=== PATIENT | male | born 1980 | race Caucasian/White ===

== ENCOUNTER 2019-07-16 17:19 | Emergency (ER) | payer SELFPAY ==
--- NOTE | 2019-07-16 17:51 | ERPHSYRPT ---
- History of Present Illness Time Seen by Provider: 07/16/19 17:51 Source: patient, family Physician History: 39 y/o white male with h/o anxiety. pt under a lot of stress with a move and problems with children. pt began feeling hot and was off balance last pm. fell and hit his head last pm as his caught him. this morning, after sleeping, pt began feeling better. however, at work symptoms recurred. he also states he has chest tightness and pressure on left. no radiation. Witnessed: by family Prior Episodes: no prior history Timing/Duration: yesterday Precipitating Factors: diaphoresis Context: emotional stress Loss of Consciousness: no loss of consciousness Charcter of event(s): almost passed out Allergies/Adverse Reactions: No Known Drug Allergies Allergy (Verified 07/16/19 18:08) Home Medications: No Reportable Medications [No Reported Medications] 07/16/19 [History] Hx Tetanus, Diphtheria Vaccination/Date Given: Yes Hx Influenza Vaccination/Date Given: No Hx Pneumococcal Vaccination/Date Given: No - Past Medical History Pertinent Past Medical History: Yes Neurological History: No Pertinent History ENT History: No Pertinent History Cardiac History: Arrhythmia Respiratory History: No Pertinent History Endocrine Medical History: Diabetes Type II Musculoskeletal History: Fractures GI Medical History: Gallbladder Disease, Pancreatitis, Ulcer History: Other (PROSTATISM) Psycho-Social History: Depression Male Reproductive Disorders: Prostate Problems Other Medical History: FREQUENT KIDNEY STONES - Past Surgical History Past Surgical History: Yes Neuro Surgical History: No Pertinent History Cardiac: No Pertinent History Respiratory: No Pertinent History Gastrointestinal: Cholecystectomy, Other Genitourinary: No Pertinent History Musculoskeletal: No Pertinent History Male Surgical History: No Pertinent History Other Surgical History: gastric bypass-rue and y, dilation of stomach - Social History Smoking Status: Never smoker Exposure to second hand smoke: No Drug Use: none Patient Lives Alone: No - Review of Systems Constitutional: Weakness Eyes: Vision Changes (was briefly blurry last pm) Ears, Nose, & Throat: No Symptoms Respiratory: No Symptoms Cardiac: Chest Pain (left described as pressure and tightness) Abdominal/Gastrointestinal: No Symptoms Genitourinary Symptoms: No Symptoms Musculoskeletal: No Symptoms Skin: No Symptoms Neurological: Dizziness, Other (loss of balance) Psychological: No Symptoms Endocrine: No Symptoms Hematologic/Lymphatic: No Symptoms Immunological/Allergic: No Symptoms Physical Exam - Nursing Vital Signs Nursing Vital Signs: Initial Vital Signs Temperature 98.1 F 07/16/19 17:23 Pulse Rate 76 07/16/19 17:23 Respiratory Rate 16 07/16/19 17:23 Blood Pressure 166/97 07/16/19 17:23 O2 Sat by Pulse Oximetry 99 07/16/19 17:23 Pain Scale Pain Intensity 5 - [place] Coma Scale Best Eye Response ([place]): (4) open spontaneously Best Verbal Response ([place]): (5) oriented Best Motor Response ([place]): (6) obeys commands Toby Total: 15 - Physical Exam General Appearance: no apparent distress, alert, anxiety Eye Exam: bilateral eye: normal inspection, PERRL, EOMI Ears, Nose, Throat Exam: normal ENT inspection, moist mucous membranes Neck Exam: normal inspection, non-tender, supple, full range of motion Respiratory: normal breath sounds, lungs clear, airway intact, No chest tenderness, No respiratory distress Cardiovascular: regular rate/rhythm, normal heart sounds, normal peripheral pulses Gastrointestinal: soft, normal bowel sounds, No tenderness Rectal Exam: not done Back Exam: normal inspection, normal range of motion, No CVA tenderness Extremity Exam: normal inspection, normal range of motion, pelvis stable Mental Status: alert, oriented x 3, cooperative manager behavior Exam: normal hearing, normal speech, PERRL, tongue midline Coordination/Gait: normal finger to nose, normal gait, normal cerebellar function Motor/Sensory: no motor deficit, no sensory deficit, no pronator drift Skin Exam: normal color, warm, dry SpO2 Interpretation: normal O2 Delivery: Room Air Ordered Tests: Active Orders 24 hr Category Date Time Status Clean Catch Urine Specimen STAT Care 07/16/19 18:17 Active EKG-ER Only STAT Care 07/16/19 18:17 Active IV Insertion STAT Care 07/16/19 18:17 Active Pulse Oximetry (ED) STAT Care 07/16/19 18:17 Active HEAD WITHOUT CONTRAST [CT] Stat Exams 07/16/19 18:18 Ordered CBC W DIFF Stat Lab 07/16/19 18:17 Ordered CMP Stat Lab 07/16/19 18:17 Ordered D-DIMER QUANTITATION Stat Lab 07/16/19 18:17 Ordered UA W/RFX UR CULTURE Stat Lab 07/16/19 18:17 Uncollected Urine Triage Profile Stat Lab 07/16/19 18:17 Uncollected Medication Summary Generic Name Dose Route Start Last Admin Trade Name Ember PRN Reason Stop Dose Admin Sodium Chloride 1,000 mls @ 999 mls/hr 07/16/19 18:17 Sodium Chloride 0.9% 1000 Ml IV 07/16/19 19:17 .Q1H1M STA - Progress Progress: unchanged Progress Note: 07/16/19 18:29 pt is leaving [facility]. pt does not want a workup. pt was evaluated by me. orders entered. pt states he has health insurance issues and does not want anything done and does not want to wait for results. pt is aware his condition may worsen and he could . he wants to leave and will sign an [facility] form - Departure Departure Disposition: AMA Clinical Impression: Syncopal episodes Condition: Stable Critical Care Time: No Referrals: AGNES FISH FNP [Family Provider] - Additional Instructions: return to ED for continue evaluation and worsening symptoms
[2019-07-16 18:17] VITALS: PULSE 69
[2019-07-16] MEDS ORDERED: Sodium Chloride 0.9% 1000 ML 1,000 ML IV STA (18:17)
[2019-07-16 18:24] VITALS: O2SAT 99
[2019-07-16 18:33] VITALS: BP 134/86
== END 2019-07-16 18:31 | disposition left against medical advice (07) ==
LOC: ED 17:19
DX: R55 Syncope and collapse (principal); E11.9 Type 2 diabetes mellitus without complications
CPT/HCPCS: 36000; 94760; 99284

== ENCOUNTER 2021-02-23 17:19 | Emergency (ER) | payer OTHER ==
--- NOTE | 2021-02-23 17:21 | ERPHSYRPT ---
- History of Present Illness Time Seen by Provider: 02/23/21 17:21 Historian: patient Exam Limitations: no limitations Physician History: This is a 40-year-old male who approximately 1 week ago noticed some intermittent left anterior chest pain in a bandlike fashion going across into his left shoulder. Today it became more constant and he became diaphoretic dizzy. He describes the pain as dull and aching. He has no cardiac history. He is on no medications chronically and he has no known drug allergies. He has had no fever or chills. He has had no cough. He has no abdominal pain. He said no nausea vomiting or diarrhea. Patient does have a history of anxiety disorders. He had a similar episode back in June 2019. That work-up was negative at that time. He has no primary care physician. Timing/Duration: day(s) (5 to 7 days) Activities at Onset: none Quality: aching Location: other (Left anterior chest wall) Chest Pain Radiation: arm (Left shoulder.) Severity of Pain-Max: moderate Severity of Pain-Current: moderate Modifying Factors: Improves With: nothing Associated Symptoms: diaphoresis, dizziness Prior Chest Pain/Cardiac Workup: no prior cardiac workup Nitro Today/Relief: no nitro taken today Aspirin Treatment Today: 81 mg x 4, provided by ED Allergies/Adverse Reactions: No Known Drug Allergies Allergy (Verified 02/23/21 17:28) Home Medications: No Reportable Medications [No Reported Medications] 07/16/19 [History] Hx Tetanus, Diphtheria Vaccination/Date Given: Yes Hx Influenza Vaccination/Date Given: No Hx Pneumococcal Vaccination/Date Given: No Travel Risk - International Travel Have you traveled outside of the country in past 3 weeks: No - Coronavirus Screening Are you exhibiting any of the following symptoms?: No Close contact with a COVID-19 positive Pt in past 14-21 Days: No - Review of Systems Constitutional: No Symptoms Eyes: No Symptoms Ears, Nose, & Throat: No Symptoms Respiratory: No Symptoms Cardiac: Chest Pain Abdominal/Gastrointestinal: No Symptoms Genitourinary Symptoms: No Symptoms Musculoskeletal: No Symptoms Skin: No Symptoms Neurological: No Symptoms Psychological: Anxiety Endocrine: No Symptoms Hematologic/Lymphatic: No Symptoms Immunological/Allergic: No Symptoms All Other Systems: Reviewed and Negative - Past Medical History Pertinent Past Medical History: Yes Neurological History: No Pertinent History ENT History: No Pertinent History Cardiac History: Arrhythmia Respiratory History: No Pertinent History Endocrine Medical History: Diabetes Type II Musculoskeletal History: Fractures GI Medical History: Gallbladder Disease, Pancreatitis, Ulcer History: Other (PROSTATISM) Psycho-Social History: Depression Male Reproductive Disorders: Prostate Problems Other Medical History: FREQUENT KIDNEY STONES - Past Surgical History Past Surgical History: Yes Neuro Surgical History: No Pertinent History Cardiac: No Pertinent History Respiratory: No Pertinent History Gastrointestinal: Cholecystectomy, Other Genitourinary: No Pertinent History Musculoskeletal: No Pertinent History Male Surgical History: No Pertinent History Other Surgical History: gastric bypass-rue and y, dilation of stomach - Social History Smoking Status: Never smoker Exposure to second hand smoke: No Drug Use: none Patient Lives Alone: No - Nursing Vital Signs Nursing Vital Signs: Initial Vital Signs Temperature 99.6 F 02/23/21 17:20 Pulse Rate 84 02/23/21 17:20 Respiratory Rate 18 02/23/21 17:20 Blood Pressure 164/103 02/23/21 17:20 O2 Sat by Pulse Oximetry 98 02/23/21 17:20 Pain Scale Pain Intensity 3 - Physical Exam General Appearance: no apparent distress, alert, anxiety Eye Exam: PERRL/EOMI, eyes nml inspection Ears, Nose, Throat Exam: normal ENT inspection, moist mucous membranes Neck Exam: normal inspection, non-tender, supple, full range of motion Respiratory Exam: normal breath sounds, lungs clear, airway intact, No chest tenderness, No respiratory distress Cardiovascular Exam: regular rate/rhythm, normal heart sounds, normal peripheral pulses Gastrointestinal/Abdomen Exam: soft, normal bowel sounds, No tenderness Rectal Exam: not done Back Exam: normal inspection, normal range of motion, No CVA tenderness, No vertebral tenderness Extremity Exam: normal inspection, normal range of motion, pelvis stable Neurologic Exam: alert, oriented x 3, cooperative, 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 The the only change on today's EKG when compared to 05/16/2013 is that today's EKG shows left axis deviation. This is a new finding.) Ordered Tests: Active Orders 24 hr Category Date Time Status Business System Manager STAT Care 02/23/21 18:51 Active EKG-ER Only STAT Care 02/23/21 17:35 Active IV Insertion STAT Care 02/23/21 17:35 Active Pulse Oximetry (ED) STAT Care 02/23/21 17:35 Active CHEST 1 VIEW (PORTABLE) Stat Exams 02/23/21 17:36 Taken CBC W DIFF Stat Lab 02/23/21 17:48 Completed CMP Stat Lab 02/23/21 17:48 Completed D-DIMER QUANTITATIVE Stat Lab 02/23/21 17:55 Completed NT PRO BNP Stat Lab 02/23/21 17:48 Completed PROTIME WITH INR Stat Lab 02/23/21 17:55 Completed TROPONIN Q3H Lab 02/23/21 17:45 Completed TROPONIN Q3H Lab 02/23/21 17:48 Received TROPONIN Q3H Lab 02/23/21 20:45 Ordered TROPONIN Q3H Lab 02/24/21 02:45 Ordered TROPONIN Q3H Lab 02/24/21 05:45 Ordered Medication Summary Discontinued Medications Generic Name Dose Route Start Last Admin Trade Name Freq PRN Reason Stop Dose Admin Aspirin 324 mg 02/23/21 17:35 02/23/21 17:47 Baby Aspirin 81 Mg Chew PO 02/23/21 17:36 324 mg STAT ONE Administration Aspirin Confirm 02/23/21 17:42 Baby Aspirin 81 Mg Chew Administered 02/23/21 17:43 Dose 324 mg .ROUTE .STK-MED ONE Morphine Sulfate 4 mg 02/23/21 17:35 02/23/21 17:47 Morphine Sulfate 4 Mg Inj IV 02/23/21 17:36 4 mg STAT ONE Administration Morphine Sulfate Confirm 02/23/21 17:43 Morphine Sulfate 4 Mg Inj Administered 02/23/21 17:44 Dose 4 mg .ROUTE .STK-MED ONE Ondansetron HCl 4 mg 02/23/21 17:35 02/23/21 17:46 Zofran 4 Mg/2 Ml Vial IV 02/23/21 17:36 4 mg STAT ONE Administration Ondansetron HCl Confirm 02/23/21 17:42 Zofran 4 Mg/2 Ml Vial Administered 02/23/21 17:43 Dose 4 mg .ROUTE .STK-MED ONE Lab/Rad Data: Laboratory Result Diagrams 02/23/21 17:48 02/23/21 17:48 Laboratory Results 02/23/21 02/23/21 02/23/21 Range/Units 17:55 17:48 17:48 WBC 4.1 (4.0-10.5) K/mm3 RBC 4.68 (4.1-5.6) M/mm3 Hgb 10.7 L (12.5-18.0) gm/dl Hct 35.4 L (42-50) % MCV 75.6 L (78-100) fl MCH 22.9 L (26-32) pg MCHC 30.2 L (32-36) g/dl RDW 16.8 H (11.5-14.0) % Plt Count 300 (150-450) K/mm3 MPV 8.8 (7.5-11.0) fl Gran % 70.6 H (36.0-66.0) % Eos # (Auto) 0.01 (0-0.5) Absolute Lymphs (auto) 0.64 L (1.0-4.6) Absolute Monos (auto) 0.54 (0.0-1.3) Lymphocytes % 15.5 L (24.0-44.0) % Monocytes % 13.0 H (0.0-12.0) % Eosinophils % 0.2 (0.00-5.0) % Basophils % 0.7 (0.0-0.4) % Absolute Granulocytes 2.92 (1.4-6.9) Basophils # 0.03 (0-0.4) PT 12.2 (9.4-12.5) SECONDS INR 1.03 (0.8-3.0) D-Dimer 248 (215-500) ng/mL Sodium 138 (137-145) mmol/L Potassium 4.3 (3.5-5.1) mmol/L Chloride 97 L (98-107) mmol/L Carbon Dioxide 24 (22-30) mmol/L Anion Gap 21.2 H (5-15) MEQ/L BUN 5 L (9-20) mg/dL Creatinine 0.75 (0.66-1.25) mg/dL Estimated GFR > 60.0 ML/MIN Glucose 117 H (74-106) mg/dL Calcium 9.2 (8.4-10.2) mg/dL Total Bilirubin 0.70 (0.2-1.3) mg/dL AST 50 (17-59) U/L ALT 17 (0-50) U/L Alkaline Phosphatase 70 (38-126) U/L Troponin I (0.000-0.034) ng/mL NT-Pro-B Natriuret Pep 47.5 (0-450) pg/mL Serum Total Protein 7.7 (6.3-8.2) g/dL Albumin 4.7 (3.5-5.0) g/dL 02/23/21 Range/Units 17:45 WBC (4.0-10.5) K/mm3 RBC (4.1-5.6) M/mm3 Hgb (12.5-18.0) gm/dl Hct (42-50) % MCV (78-100) fl MCH (26-32) pg MCHC (32-36) g/dl RDW (11.5-14.0) % Plt Count (150-450) K/mm3 MPV (7.5-11.0) fl Gran % (36.0-66.0) % Eos # (Auto) (0-0.5) Absolute Lymphs (auto) (1.0-4.6) Absolute Monos (auto) (0.0-1.3) Lymphocytes % (24.0-44.0) % Monocytes % (0.0-12.0) % Eosinophils % (0.00-5.0) % Basophils % (0.0-0.4) % Absolute Granulocytes (1.4-6.9) Basophils # (0-0.4) PT (9.4-12.5) SECONDS INR (0.8-3.0) D-Dimer (215-500) ng/mL Sodium (137-145) mmol/L Potassium (3.5-5.1) mmol/L Chloride (98-107) mmol/L Carbon Dioxide (22-30) mmol/L Anion Gap (5-15) MEQ/L BUN (9-20) mg/dL Creatinine (0.66-1.25) mg/dL Estimated GFR ML/MIN Glucose (74-106) mg/dL Calcium (8.4-10.2) mg/dL Total Bilirubin (0.2-1.3) mg/dL AST (17-59) U/L ALT (0-50) U/L Alkaline Phosphatase (38-126) U/L Troponin I < 0.012 (0.000-0.034) ng/mL NT-Pro-B Natriuret Pep (0-450) pg/mL Serum Total Protein (6.3-8.2) g/dL Albumin (3.5-5.0) g/dL - Progress Progress: improved, re-examined Air Movement: good Progress Note: 02/23/21 19:29 Chest x-ray shows no acute cardiopulmonary process. Blood Culture(s) Obtained: No Antibiotics given: No Counseled pt/family regarding: lab results, diagnosis, need for follow-up, rad results - Departure Departure Disposition: Home Clinical Impression: Chest pain, non-cardiac Condition: Stable Critical Care Time: No Additional Instructions: Follow-up with a primary provider. See list provided to you. Return to the e mergency department if your symptoms recur.
[2021-02-23] MEDS ORDERED: BABY ASPIRIN 81 MG CHEW PO ONE (17:35)
[2021-02-23] MEDS ORDERED: MORPHINE SULFATE 4 MG INJ IV ONE (17:35)
[2021-02-23] MEDS ORDERED: Zofran 4 MG/2 ML VIAL IV ONE (17:35)
[2021-02-23] MEDS ORDERED: BABY ASPIRIN 81 MG CHEW ONE (17:42)
[2021-02-23] MEDS ORDERED: Zofran 4 MG/2 ML VIAL ONE (17:42)
[2021-02-23] MEDS ORDERED: MORPHINE SULFATE 4 MG INJ ONE (17:43)
[2021-02-23 17:52] LABS: Absolute Neutrophil Ct (ANC) 2.92 (1.4-6.9); BASOPHIL % 0.7 % (0.0-0.4); Basophil (Absolute #) 0.03 (0-0.4); Eosinophil % 0.2 % (0.00-5.0); Eosinophil (Absolute #) 0.01 (0-0.5); Hematocrit 35.4 % (42-50); Hemoglobin 10.7 gm/dl (12.5-18.0); Lymphocyte (Absolute #) 0.64 (1.0-4.6); Lymphocytes % 15.5 % (24.0-44.0); Mean Cell Volume 75.6 fl (78-100); Mean Corpuscular Hemoglobin 22.9 pg (26-32); Mean Corpuscular Hgb Concent. 30.2 g/dl (32-36); Mean Platelet Volume 8.8 fl (7.5-11.0); Monocyte (Absolute #) 0.54 (0.0-1.3); Neutrophil % 70.6 % (36.0-66.0); Platelet Count 300 K/mm3 (150-450); Red Blood Count 4.68 M/mm3 (4.1-5.6); Red Cell Distribution Width 16.8 % (11.5-14.0); White Blood Count 4.1 K/mm3 (4.0-10.5)
[2021-02-23 18:12] LABS: ALBUMIN 4.7 g/dL (3.5-5.0); ALKALINE PHOSPHATASE 70 U/L (38-126); ANION GAP 21.2 MEQ/L (5-15); BLOOD UREA NITROGEN 5 mg/dL (9-20); CHLORIDE 97 mmol/L (98-107); Calcium 9.2 mg/dL (8.4-10.2); Carbon Dioxide 24 mmol/L (22-30); Creatinine 1 0.75 mg/dL (0.66-1.25); EST GLOMERULAR FILTRATION RATE > 60.0 ML/MIN; Glucose 117 mg/dL (74-106); NT PRO BNP 47.5 pg/mL (0-450); Potassium 4.3 mmol/L (3.5-5.1); SGOT/AST 50 U/L (17-59); SGPT/ALT 17 U/L (0-50); SODIUM 138 mmol/L (137-145); Total Protein 7.7 g/dL (6.3-8.2)
[2021-02-23 18:51] LABS: INR 1.03 (0.8-3.0); PROTIME 12.2 SECONDS (9.4-12.5)
[2021-02-23 19:36] VITALS: BP 144/97; PULSE 68; O2SAT 97
--- NOTE | 2021-02-24 08:45 | XRAY ---
Indication: Chest pain. Comparison: 12/02/11. Portable chest demonstrates new minimal left base subsegmental atelectasis/scarring with stable bilateral tiny calcified granulomas. Remaining heart and lungs unremarkable. Bony thorax intact with minimal degenerative changes.
== END 2021-02-23 19:39 | disposition home or self-care (01) ==
LOC: ED 17:19
DX: R07.89 Other chest pain (principal); E11.9 Type 2 diabetes mellitus without complications
CPT/HCPCS: 36000; 36415; 71045; 80053; 83880; 84484; 85025; 85379; 85610; 93005; 93041; 94760; 96374; 96375; 99284; J2270; J2405; A9270-GY

== ENCOUNTER 2022-04-17 20:28 | Emergency (ER) | payer OTHER ==
[2022-04-17 20:42] VITALS: BP 160/104; PULSE 88; O2SAT 97
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
== END 2022-04-17 21:16 | disposition home or self-care (01) ==
LOC: ED 20:28
DX: Z04.3 Encounter for examination and observation following other accident (principal); E11.9 Type 2 diabetes mellitus without complications; Z28.310 Unvaccinated for COVID-19
CPT/HCPCS: 99281

== ENCOUNTER 2023-01-11 10:22 | Emergency (ER) | payer OTHER ==
[2023-01-11] MEDS ORDERED: Sodium Chloride 0.9% 1000 ML 1,000 ML IV STA (10:47)
[2023-01-11] MEDS ORDERED: Sodium Chloride 0.9% 1000 ML 1,000 ML ONE (11:04)
[2023-01-11 11:13] LABS: Absolute Neutrophil Ct (ANC) 2.88 x10^3/uL (1.4-6.9); BASOPHIL % 0.9 % (0.0-0.4); Basophil (Absolute #) 0.04 x10^3/uL (0-0.4); Eosinophil % 0.7 % (0.00-5.0); Eosinophil (Absolute #) 0.03 x10^3/uL (0-0.5); Hematocrit 34.6 % (42-50); Hemoglobin 9.6 g/dL (12.5-18.0); IMMATURE GRAN # 0.02 x10^3u/L (0.00-0.03); IMMATURE GRAN % 0.5 % (0.00-0.4); Lymphocyte (Absolute #) 0.84 x10^3/uL (1.0-4.6); Lymphocytes % 19.1 % (24.0-44.0); Mean Cell Volume 72.7 fL (78-100); Mean Corpuscular Hemoglobin 20.2 pg (26-32); Mean Corpuscular Hgb Concent. 27.7 g/dL (32-36); Mean Platelet Volume 8.5 fL (7.5-11.0); Monocyte (Absolute #) 0.58 x10^3/uL (0.0-1.3); Monocytes % 13.2 % (0.0-12.0); Neutrophil % 65.6 % (36.0-66.0); Platelet Count 341 x10^3/uL (150-450); Red Blood Count 4.76 x10^6/uL (4.1-5.6); Red Cell Distribution Width 16.6 % (11.5-14.0); White Blood Count 4.4 x10^3/uL (4.0-10.5)
[2023-01-11 11:18] LABS: Appearance Clear (Clear); Bilirubin Negative (Negative); Blood Negative (Negative); Glucose, Urine Negative (Negative); Ketones 15 (Negative); Leukocyte Esterase Negative (Negative); Nitrite Negative (Negative); Protein,Urine Dip Negative (Negative); Specific Gravity <=1.005 (1.005-1.030); Urobilinogen 0.2 mg/dL (0.2)
[2023-01-11 11:25] LABS: INR 0.94 (0.8-3.0); PROTIME 10.3 SECONDS (9.4-12.5); PTT 24.7 SECONDS (25.1-36.5)
[2023-01-11 11:32] LABS: ALBUMIN 4.5 g/dL (3.5-5.0); ALKALINE PHOSPHATASE 58 U/L (38-126); BLOOD UREA NITROGEN 7 mg/dL (9-20); CHLORIDE 96 mmol/L (98-107); Calcium 8.5 mg/dL (8.4-10.2); Carbon Dioxide 25 mmol/L (22-30); EST GLOMERULAR FILTRATION RATE > 60.0 ML/MIN; ETHYL ALCOHOL < 10 mg/dL (0-10); Glucose 113 mg/dL (74-106); MAGNESIUM 2.1 mg/dL (1.6-2.3); Potassium 4.2 mmol/L (3.5-5.1); SGOT/AST 37 U/L (17-59); SGPT/ALT 16 U/L (0-50); SODIUM 132 mmol/L (137-145); Total Protein 7.9 g/dL (6.3-8.2)
[2023-01-11 11:34] LABS: Bacteria None Seen /HPF (None Seen); Epithelial Cells None Seen /HPF (None Seen); Hyaline Casts NONE SEEN /LPF (0-2); RBC 0-2 /HPF (0-5); WBC 0-2 /HPF (0-5)
[2023-01-11 11:35] LABS: ADD URINE CULTURE? NO (NO)
[2023-01-11 11:44] LABS: Amphetamine,Urine NEGATIVE (NEGATIVE); Barbiturate,Urine NEGATIVE (NEGATIVE); Benzodiazepine,Urine NEGATIVE (NEGATIVE); Cocaine,Urine NEGATIVE (NEGATIVE); Methadone,Urine NEGATIVE (NEGATIVE); Opiate,Urine NEGATIVE (NEGATIVE); PCP,Urine NEGATIVE (NEGATIVE); THC,Urine NEGATIVE (NEGATIVE)
[2023-01-11 11:45] LABS: INFLUENZA A NEGATIVE (NEGATIVE); INFLUENZA B NEGATIVE (NEGATIVE); RESPIRATORY SYNCTIAL VIRUS NEGATIVE (NEGATIVE); SARS-CoV-2 Xpert Express NEGATIVE (NEGATIVE)
--- NOTE | 2023-01-11 11:46 | XRAY ---
Indication: Weakness. Comparison: February 23, 2021 Portable chest unchanged again demonstrating minimal left base subsegmental atelectasis/scarring and a few tiny bilateral calcified granulomas. Remaining heart and lungs unremarkable. Bony thorax intact. No new/acute findings.
--- NOTE | 2023-01-11 11:46 | XRAY ---
Indication: Headache. Multiple contiguous axial images obtained through the head without contrast. Comparison: None Normal appearing brain parenchyma, ventricles, and bony calvarium. Visualized paranasal sinuses and mastoid air cells are clear. Impression: Normal CT head without contrast exam.
--- NOTE | 2023-01-11 12:10 | ERPHSYRPT ---
- History of Present Illness Source: patient Exam Limitations: other (Poor historian) Patient Subjective Stated Complaint: C/O fatigue and headache that started yesterday. States he currently having some brain fog; was driving from [place] to [place] but ended up in [place]. Triage Nursing Assessment: Patient brought back to ER in W/C from [facility] He is currently alert and oriented; calm. No SOB. No cough. He is warm to touch. [facility] WNL. Physician History: 42 yo WM w lethargy x 2 days. Pt states that he has had a frontal headache x1 day which is 2/10 and throbbing. He also has mild dyspnea and states that he has had mild chest pain which he describes as an ache. Pt denies fever/N/V/D/melena/hematochezia/cough/coryza/dysuria/hematuria. Timing/Duration: other (2 days) Associated Symptoms: denies symptoms, shortness of breath, chest pain Allergies/Adverse Reactions: No Known Drug Allergies Allergy (Verified 01/11/23 10:33) Hx Tetanus, Diphtheria Vaccination/Date Given: Yes Hx Influenza Vaccination/Date Given: No Hx Pneumococcal Vaccination/Date Given: No Immunizations Up to Date: Yes Travel Risk - International Travel Have you traveled outside of the country in past 3 weeks: No - Coronavirus Screening Are you exhibiting any of the following symptoms?: Yes Symptoms: Headaches/Body Aches/Fatigue Close contact with a COVID-19 positive Pt in past 14-21 Days: No - Vaccine Status Have you recieved a Covid-19 vaccination: No - Review of Systems Constitutional: No Symptoms, Fatigue, Lethargy, Malaise Eyes: No Symptoms Ears, Nose, & Throat: No Symptoms Respiratory: No Symptoms, Dyspnea Cardiac: No Symptoms Abdominal/Gastrointestinal: No Symptoms Genitourinary Symptoms: No Symptoms Musculoskeletal: No Symptoms Skin: No Symptoms Neurological: No Symptoms, Headache Psychological: No Symptoms Endocrine: No Symptoms Hematologic/Lymphatic: No Symptoms Immunological/Allergic: No Symptoms - Past Medical History Pertinent Past Medical History: Yes Neurological History: No Pertinent History ENT History: No Pertinent History Cardiac History: Arrhythmia Respiratory History: No Pertinent History Endocrine Medical History: Diabetes Type II Musculoskeletal History: Fractures GI Medical History: Gallbladder Disease, Pancreatitis, Ulcer History: Other Psycho-Social History: Depression Male Reproductive Disorders: Prostate Problems Other Medical History: FREQUENT KIDNEY STONES - Past Surgical History Past Surgical History: Yes Neuro Surgical History: No Pertinent History Cardiac: No Pertinent History Respiratory: No Pertinent History Gastrointestinal: Cholecystectomy, Other Genitourinary: No Pertinent History Musculoskeletal: No Pertinent History Male Surgical History: No Pertinent History Other Surgical History: gastric bypass-rue and y, dilation of stomach, L knee surgery - Social History Smoking Status: Never smoker Exposure to second hand smoke: No Drug Use: none Patient Lives Alone: No Significant Family History: no pertinent family hx - Nursing Vital Signs Nursing Vital Signs: Initial Vital Signs Temperature 99.1 F 01/11/23 10:26 Pulse Rate 67 01/11/23 10:26 Respiratory Rate 18 01/11/23 10:26 Blood Pressure 148/102 01/11/23 10:26 O2 Sat by Pulse Oximetry 100 01/11/23 10:26 Pain Scale Pain Intensity 2 Hypertensive - Physical Exam General Appearance: no apparent distress Eye Exam: PERRL/EOMI, eyes nml inspection Ears, Nose, Throat Exam: normal ENT inspection, TMs normal, pharynx normal, moist mucous membranes Neck Exam: normal inspection, non-tender, supple, full range of motion, No meningismus, No mass, No Brudzinski, No Kernig's Respiratory Exam: normal breath sounds, lungs clear, airway intact Cardiovascular Exam: regular rate/rhythm, normal heart sounds, normal peripheral pulses, capillary refill <2 sec, No murmur Gastrointestinal/Abdomen Exam: soft, normal bowel sounds, No tenderness Back Exam: normal inspection, normal range of motion, CVA tenderness, No vertebral tenderness Extremity Exam: normal inspection, normal range of motion Neurologic Exam: alert, oriented x 3, cooperative, tobacco drummer II-XII nml as tested, normal mood/affect, nml cerebellar function, nml station & gait, sensation nml Skin Exam: normal color, warm, dry Lymphatic Exam: No adenopathy SpO2 Interpretation: normal SpO2: 99 O2 Delivery: Room Air - Course Nursing assessment & vital signs reviewed: Yes EKG Interpreted by Me: RATE (NSR/Rate 60/Normal QT-QTc/Tall Twaves/Tall Rwave V2) - Radiology Exams Chest X-ray Interpretation: Reviewed by me (CXR-L basilar atelectasis), Discussed w/ radiologist - CT Exams Head CT Interpretation: Discussed w/radiologist (CT head neg per Dr. Yip) Abdomen/Pelvis CT Interpretation: Discussed w/radiologist (CT [id number] bladder/Small B renal cysts) Ordered Tests: Active Orders 24 hr Category Date Time Status EKG-ER Only STAT Care 01/11/23 10:47 Active IV Insertion STAT Care 01/11/23 10:47 Active ABDOMEN AND PELVIS W CONTRAST [CT] Stat Exams 01/11/23 12:17 Completed CHEST 1 VIEW (PORTABLE) Stat Exams 01/11/23 10:48 Completed HEAD WITHOUT CONTRAST [CT] Stat Exams 01/11/23 10:50 Completed CBC W DIFF Stat Lab 01/11/23 11:05 Completed CMP Stat Lab 01/11/23 11:05 Completed ETHYL ALCOHOL Stat Lab 01/11/23 11:05 Completed Lactic Acid Stat Lab 01/11/23 11:00 Completed MAGNESIUM Stat Lab 01/11/23 11:05 Completed PROTIME WITH INR Stat Lab 01/11/23 11:05 Completed PTT Stat Lab 01/11/23 11:05 Completed TROPONIN Q4H Lab 01/11/23 11:05 Completed TROPONIN Q4H Lab 01/11/23 15:00 Ordered TROPONIN Q4H Lab 01/11/23 19:00 Ordered UA W/RFX UR CULTURE Stat Lab 01/11/23 11:01 Completed Urine Triage Profile Stat Lab 01/11/23 11:01 Completed Medication Summary Discontinued Medications Generic Name Dose Route Start Last Admin Trade Name Freq PRN Reason Stop Dose Admin Sodium Chloride 1,000 mls @ 999 mls/hr 01/11/23 10:47 01/11/23 12:15 Sodium Chloride 0.9% 1000 Ml IV 01/11/23 11:47 Infused .Q1H1M STA Infusion Sodium Chloride Confirm 01/11/23 11:04 Sodium Chloride 0.9% 1000 Ml Administered 01/11/23 11:05 Dose 1,000 mls @ ud .ROUTE .STK-MED ONE Lab/Rad Data: Laboratory Result Diagrams 01/11/23 11:05 01/11/23 11:05 Laboratory Results 01/11/23 01/11/23 01/11/23 Range/Units 11:05 11:05 11:05 WBC (4.0-10.5) x10^3/uL RBC (4.1-5.6) x10^6/uL Hgb (12.5-18.0) g/dL Hct (42-50) % MCV (78-100) fL MCH (26-32) pg MCHC (32-36) g/dL RDW (11.5-14.0) % Plt Count (150-450) x10^3/uL MPV (7.5-11.0) fL Gran % (36.0-66.0) % Immature Gran % (Auto) (0.00-0.4) % Nucleat RBC Rel Count (0.00-0.1) % Eos # (Auto) (0-0.5) x10^3/uL Immature Gran # (Auto) (0.00-0.03) x10^3u/L Absolute Lymphs (auto) (1.0-4.6) x10^3/uL Absolute Monos (auto) (0.0-1.3) x10^3/uL Absolute Nucleated RBC (0.00-0.01) x10^3u/L Lymphocytes % (24.0-44.0) % Monocytes % (0.0-12.0) % Eosinophils % (0.00-5.0) % Basophils % (0.0-0.4) % Absolute Granulocytes (1.4-6.9) x10^3/uL Basophils # (0-0.4) x10^3/uL PT 10.3 (9.4-12.5) SECONDS INR 0.94 (0.8-3.0) APTT 24.7 L (25.1-36.5) SECONDS Sodium 132 L (137-145) mmol/L Potassium 4.2 (3.5-5.1) mmol/L Chloride 96 L (98-107) mmol/L Carbon Dioxide 25 (22-30) mmol/L Anion Gap 16.0 H (5-15) MEQ/L BUN 7 L (9-20) mg/dL Creatinine 0.60 L (0.66-1.25) mg/dL Estimated GFR > 60.0 ML/MIN Glucose 113 H (74-106) mg/dL Lactic Acid (0.4-2.0) Calcium 8.5 (8.4-10.2) mg/dL Magnesium 2.1 (1.6-2.3) mg/dL Total Bilirubin 1.00 (0.2-1.3) mg/dL AST 37 (17-59) U/L ALT 16 (0-50) U/L Alkaline Phosphatase 58 (38-126) U/L Troponin I < 0.012 (0.000-0.034) ng/mL Serum Total Protein 7.9 (6.3-8.2) g/dL Albumin 4.5 (3.5-5.0) g/dL Urine Color (Yellow) Urine Appearance (Clear) Urine pH (4.6-8.0) Ur Specific [place] (1.005-1.030) Urine Protein (Negative) Urine Glucose (UA) (Negative) mg/dL Urine Ketones (Negative) Urine Blood (Negative) Urine Nitrite (Negative) Urine Bilirubin (Negative) Urine Urobilinogen (0.2) mg/dL Ur Leukocyte Esterase (Negative) U Hyaline Cast (Auto) (0-2) /LPF Urine Microscopic RBC (0-5) /HPF Urine Microscopic WBC (0-5) /HPF Ur Epithelial Cells (None Seen) /HPF Urine Bacteria (None Seen) /HPF Urine Culture Reflexed (NO) Urine Opiates Level (NEGATIVE) Ur Methadone (NEGATIVE) Urine Barbiturates (NEGATIVE) Ur Phencyclidine (PCP) (NEGATIVE) Urine Amphetamine (NEGATIVE) U Benzodiazepine Level (NEGATIVE) Urine Cocaine (NEGATIVE) Urine Marijuana (THC) (NEGATIVE) Ethyl Alcohol < 10 (0-10) mg/dL Influenza Type A Ag (NEGATIVE) Influenza Type B Ag (NEGATIVE) RSV (PCR) (NEGATIVE) SARS-CoV-2 (PCR) (NEGATIVE) Slides for Path Review 01/11/23 01/11/23 01/11/23 Range/Units 11:05 11:01 11:01 WBC 4.4 (4.0-10.5) x10^3/uL RBC 4.76 (4.1-5.6) x10^6/uL Hgb 9.6 L (12.5-18.0) g/dL Hct 34.6 L (42-50) % MCV 72.7 L (78-100) fL MCH 20.2 L (26-32) pg MCHC 27.7 L (32-36) g/dL RDW 16.6 H (11.5-14.0) % Plt Count 341 (150-450) x10^3/uL MPV 8.5 (7.5-11.0) fL Gran % 65.6 (36.0-66.0) % Immature Gran % (Auto) 0.5 H (0.00-0.4) % Nucleat RBC Rel Count 0.0 (0.00-0.1) % Eos # (Auto) 0.03 (0-0.5) x10^3/uL Immature Gran # (Auto) 0.02 (0.00-0.03) x10^3u/L Absolute Lymphs (auto) 0.84 L (1.0-4.6) x10^3/uL Absolute Monos (auto) 0.58 (0.0-1.3) x10^3/uL Absolute Nucleated RBC 0.00 (0.00-0.01) x10^3u/L Lymphocytes % 19.1 L (24.0-44.0) % Monocytes % 13.2 H (0.0-12.0) % Eosinophils % 0.7 (0.00-5.0) % Basophils % 0.9 (0.0-0.4) % Absolute Granulocytes 2.88 (1.4-6.9) x10^3/uL Basophils # 0.04 (0-0.4) x10^3/uL PT (9.4-12.5) SECONDS INR (0.8-3.0) APTT (25.1-36.5) SECONDS Sodium (137-145) mmol/L Potassium (3.5-5.1) mmol/L Chloride (98-107) mmol/L Carbon Dioxide (22-30) mmol/L Anion Gap (5-15) MEQ/L BUN (9-20) mg/dL Creatinine (0.66-1.25) mg/dL Estimated GFR ML/MIN Glucose (74-106) mg/dL Lactic Acid (0.4-2.0) Calcium (8.4-10.2) mg/dL Magnesium (1.6-2.3) mg/dL Total Bilirubin (0.2-1.3) mg/dL AST (17-59) U/L ALT (0-50) U/L Alkaline Phosphatase (38-126) U/L Troponin I (0.000-0.034) ng/mL Serum Total Protein (6.3-8.2) g/dL Albumin (3.5-5.0) g/dL Urine Color (Yellow) Urine Appearance (Clear) Urine pH (4.6-8.0) Ur Specific [place] (1.005-1.030) Urine Protein (Negative) Urine Glucose (UA) (Negative) mg/dL Urine Ketones (Negative) Urine Blood (Negative) Urine Nitrite (Negative) Urine Bilirubin (Negative) Urine Urobilinogen (0.2) mg/dL Ur Leukocyte Esterase (Negative) U Hyaline Cast (Auto) (0-2) /LPF Urine Microscopic RBC (0-5) /HPF Urine Microscopic WBC (0-5) /HPF Ur Epithelial Cells (None Seen) /HPF Urine Bacteria (None Seen) /HPF Urine Culture Reflexed (NO) Urine Opiates Level NEGATIVE (NEGATIVE) Ur Methadone NEGATIVE (NEGATIVE) Urine Barbiturates NEGATIVE (NEGATIVE) Ur Phencyclidine (PCP) NEGATIVE (NEGATIVE) Urine Amphetamine NEGATIVE (NEGATIVE) U Benzodiazepine Level NEGATIVE (NEGATIVE) Urine Cocaine NEGATIVE (NEGATIVE) Urine Marijuana (THC) NEGATIVE (NEGATIVE) Ethyl Alcohol (0-10) mg/dL Influenza Type A Ag NEGATIVE (NEGATIVE) Influenza Type B Ag NEGATIVE (NEGATIVE) RSV (PCR) NEGATIVE (NEGATIVE) SARS-CoV-2 (PCR) NEGATIVE (NEGATIVE) Slides for Path Review YES 01/11/23 01/11/23 Range/Units 11:01 11:00 WBC (4.0-10.5) x10^3/uL RBC (4.1-5.6) x10^6/uL Hgb (12.5-18.0) g/dL Hct (42-50) % MCV (78-100) fL MCH (26-32) pg MCHC (32-36) g/dL RDW (11.5-14.0) % Plt Count (150-450) x10^3/uL MPV (7.5-11.0) fL Gran % (36.0-66.0) % Immature Gran % (Auto) (0.00-0.4) % Nucleat RBC Rel Count (0.00-0.1) % Eos # (Auto) (0-0.5) x10^3/uL Immature Gran # (Auto) (0.00-0.03) x10^3u/L Absolute Lymphs (auto) (1.0-4.6) x10^3/uL Absolute Monos (auto) (0.0-1.3) x10^3/uL Absolute Nucleated RBC (0.00-0.01) x10^3u/L Lymphocytes % (24.0-44.0) % Monocytes % (0.0-12.0) % Eosinophils % (0.00-5.0) % Basophils % (0.0-0.4) % Absolute Granulocytes (1.4-6.9) x10^3/uL Basophils # (0-0.4) x10^3/uL PT (9.4-12.5) SECONDS INR (0.8-3.0) APTT (25.1-36.5) SECONDS Sodium (137-145) mmol/L Potassium (3.5-5.1) mmol/L Chloride (98-107) mmol/L Carbon Dioxide (22-30) mmol/L Anion Gap (5-15) MEQ/L BUN (9-20) mg/dL Creatinine (0.66-1.25) mg/dL Estimated GFR ML/MIN Glucose (74-106) mg/dL Lactic Acid 0.9 (0.4-2.0) Calcium (8.4-10.2) mg/dL Magnesium (1.6-2.3) mg/dL Total Bilirubin (0.2-1.3) mg/dL AST (17-59) U/L ALT (0-50) U/L Alkaline Phosphatase (38-126) U/L Troponin I (0.000-0.034) ng/mL Serum Total Protein (6.3-8.2) g/dL Albumin (3.5-5.0) g/dL Urine Color Yellow (Yellow) Urine Appearance Clear (Clear) Urine pH 7.0 (4.6-8.0) Ur Specific [place] <=1.005 (1.005-1.030) Urine Protein Negative (Negative) Urine Glucose (UA) Negative (Negative) mg/dL Urine Ketones 15 A (Negative) Urine Blood Negative (Negative) Urine Nitrite Negative (Negative) Urine Bilirubin Negative (Negative) Urine Urobilinogen 0.2 (0.2) mg/dL Ur Leukocyte Esterase Negative (Negative) U Hyaline Cast (Auto) NONE SEEN (0-2) /LPF Urine Microscopic RBC 0-2 (0-5) /HPF Urine Microscopic WBC 0-2 (0-5) /HPF Ur Epithelial Cells None Seen (None Seen) /HPF Urine Bacteria None Seen (None Seen) /HPF Urine Culture Reflexed NO (NO) Urine Opiates Level (NEGATIVE) Ur Methadone (NEGATIVE) Urine Barbiturates (NEGATIVE) Ur Phencyclidine (PCP) (NEGATIVE) Urine Amphetamine (NEGATIVE) U Benzodiazepine Level (NEGATIVE) Urine Cocaine (NEGATIVE) Urine Marijuana (THC) (NEGATIVE) Ethyl Alcohol (0-10) mg/dL Influenza Type A Ag (NEGATIVE) Influenza Type B Ag (NEGATIVE) RSV (PCR) (NEGATIVE) SARS-CoV-2 (PCR) (NEGATIVE) Slides for Path Review - Progress Progress Note: 01/11/23 13:42 Nursing note and vital signs reviewed No food or housing insecurities noted All lab results reviewed and shared w pt CT results reviewed and shared w pt Counseled pt/family regarding: lab results, diagnosis, need for follow-up, rad results - Departure Departure Disposition: Home Clinical Impression: Lethargy, Microcytic anemia Condition: Stable Critical Care Time: No Referrals: CHAN KIRK NP [Primary Care Provider] - Follow up/PCP as directed Instructions: Generalized Weakness (DC), Anemia, Possibly From Low Iron, Adult ED Additional Instructions: Follow up with your family MD in 1-2 days Start Iron twice a day Watch for blood in stool(Iron will make stool black) Return to ER as needed Forms: Work/School Release Form Prescriptions: Ferrous Sulfate [Iron] 325 mg PO BID #60 tablet
[2023-01-11 13:26] LABS: Slide Review 1 YES
--- NOTE | 2023-01-11 13:46 | XRAY ---
Indication: Anemia. Multiple contiguous axial images obtained through the abdomen and pelvis using 80 cc Isovue 370 contrast. Comparison: June 25, 2013 Lung bases demonstrates minimal dependent atelectasis. No infiltrate or effusion. Heart not enlarged. Again gastric bypass surgery. Noncontrasted stomach and bowel loops nonobstructed with normal appendix. Urinary bladder is now markedly distended concerning for outlet obstruction versus neurogenic bladder. Both kidneys enhance and excrete with 8mm cortical cyst in each kidney not seen on previous noncontrast exam. Again cholecystectomy. No free fluid/air. Remaining liver, pancreas, spleen, adrenal glands, kidneys, ureters, bladder, and aorta are unremarkable. No pathologic retroperitoneal lymphadenopathy. Osseous structures intact. Impression: 1. Markedly distended urinary bladder. Rule out outlet obstruction versus neurogenic bladder. 2. Incidental small bilateral renal cyst. 3. Remaining CT abdomen/pelvis with contrast exam continues to be negative.
[2023-01-11 14:12] VITALS: BP 154/97; PULSE 68; O2SAT 97
== END 2023-01-11 14:12 | disposition home or self-care (01) ==
LOC: ED 10:22
DX: R53.83 Other fatigue (principal); D53.9 Nutritional anemia, unspecified; R51.9 Headache, unspecified; R06.00 Dyspnea, unspecified; R07.9 Chest pain, unspecified; E11.9 Type 2 diabetes mellitus without complications; Z28.310 Unvaccinated for COVID-19
CPT/HCPCS: 0241U; 36000; 36415; 70450; 71045; 74177; 80053; 80307; 81001; 82077; 83605; 83735; 84484; 85025; 85610; 85730; 93005; 96360; 99284

== ENCOUNTER 2023-08-25 11:17 | Emergency (ER) | payer OTHER ==
[2023-08-25 11:37] VITALS: TEMP 98.4
[2023-08-25] MEDS ORDERED: PROTONIX 40 MG IV IV ONE ×2 (11:46→11:52)
[2023-08-25] MEDS ORDERED: Zofran 4 MG/2 ML VIAL IV ONE (11:46)
[2023-08-25] MEDS ORDERED: Sodium Chloride 0.9% 1000 ML 1,000 ML IV STA (11:46)
--- NOTE | 2023-08-25 11:46 | ERPHSYRPT ---
- History of Present Illness Time Seen by Provider: 08/25/23 11:40 Historian: patient Exam Limitations: no limitations Patient Subjective Stated Complaint: C/O vomitting and diarrhea since Monday night. Patient states he is here today due "needing IV fluids." Patient last vomitted round 7pm last night. Triage Nursing Assessment: Patient ambulated back to ER without difficulties wearing a mask. He is alert and oriented. No SOB. No cough. Skin tone normal. [facility] WNL. Denies pain. No current vomitting during assessment. Oral mucosa moist. Physician History: This is a 43-year-old white male patient who presents to the emergency department with intermittent vomiting and diarrhea and fatigue and weakness for 6 days. Patient's primary care provider is nurse practitioner Rigoberto. Patient has no known drug allergies and takes no medications chronically. Patient went to [facility] on 08/22/2023 and was diagnosed with influenza A. Patient's last vomiting episode was 7 PM last night. Patient denies cough. Patient has chest pain. Patient denies shortness of breath. Patient has had a gastric bypass performed approximately 12 years ago. He has had a cholecystectomy in the past. Timing/Duration: day(s) (6) Activities at Onset: none Abdominal Pain Onset Location: generalized abdomen Severity of Pain-Max: mild Severity of Pain-Current: none Modifying Factors: Improves With: vomiting Associated Symptoms: diarrhea, loss of appetite, nausea, vomiting, weakness Previous symptoms: no prior history, recently seen, recently treated Allergies/Adverse Reactions: No Known Drug Allergies Allergy (Verified 08/25/23 11:26) Hx Tetanus, Diphtheria Vaccination/Date Given: Yes Hx Influenza Vaccination/Date Given: No Hx Pneumococcal Vaccination/Date Given: No Immunizations Up to Date: Yes Travel Risk - International Travel Have you traveled outside of the country in past 3 weeks: No - Coronavirus Screening Are you exhibiting any of the following symptoms?: Yes Symptoms: Vomiting/Diarrhea Close contact with a COVID-19 positive Pt in past 14-21 Days: No - Vaccine Status Have you recieved a Covid-19 vaccination: No - Review of Systems Constitutional: Weakness Eyes: No Symptoms Ears, Nose, & Throat: No Symptoms Respiratory: No Symptoms Cardiac: No Symptoms Abdominal/Gastrointestinal: Nausea, Vomiting, Diarrhea, Appetite Changes, No Abdominal Pain Genitourinary Symptoms: No Symptoms Musculoskeletal: No Symptoms Skin: No Symptoms Neurological: No Symptoms Psychological: No Symptoms Endocrine: No Symptoms Hematologic/Lymphatic: No Symptoms Immunological/Allergic: No Symptoms All Other Systems: Reviewed and Negative - Past Medical History Pertinent Past Medical History: Yes Neurological History: No Pertinent History ENT History: No Pertinent History Cardiac History: Arrhythmia Respiratory History: No Pertinent History Endocrine Medical History: No Pertinent History Musculoskeletal History: Fractures GI Medical History: Gallbladder Disease, Pancreatitis, Ulcer History: Other Psycho-Social History: Depression Male Reproductive Disorders: Prostate Problems Other Medical History: FREQUENT KIDNEY STONES - Past Surgical History Past Surgical History: Yes Neuro Surgical History: No Pertinent History Cardiac: No Pertinent History Respiratory: No Pertinent History Gastrointestinal: Cholecystectomy, Other Genitourinary: No Pertinent History Musculoskeletal: No Pertinent History Male Surgical History: No Pertinent History Other Surgical History: gastric bypass, dilation of stomach, L knee surgery - Social History Smoking Status: Never smoker Exposure to second hand smoke: No Drug Use: none Patient Lives Alone: No Significant Family History: no pertinent family hx - Nursing Vital Signs Nursing Vital Signs: Initial Vital Signs Temperature 98.4 F 08/25/23 11:27 Pulse Rate 89 08/25/23 11:27 Respiratory Rate 17 08/25/23 11:27 Blood Pressure 154/105 08/25/23 11:27 O2 Sat by Pulse Oximetry 100 08/25/23 11:27 Pain Scale Pain Intensity 0 - Physical Exam General Appearance: no apparent distress, alert, anxiety Eye Exam: PERRL/EOMI, eyes nml inspection Ears, Nose, Throat Exam: normal ENT inspection, moist mucous membranes Neck Exam: normal inspection, non-tender, supple, full range of motion Respiratory Exam: normal breath sounds, lungs clear, airway intact, No chest tenderness, No respiratory distress Cardiovascular Exam: regular rate/rhythm, normal heart sounds, normal peripheral pulses Gastrointestinal/Abdomen Exam: soft, normal bowel sounds, No tenderness Rectal Exam: not done Back Exam: normal inspection, normal range of motion, No CVA tenderness, No vertebral tenderness Extremity Exam: normal inspection, normal range of motion, pelvis stable Neurologic Exam: alert, oriented x 3, cooperative, mason helper II-XII nml as tested, normal mood/affect, nml cerebellar function, nml station & gait, sensation nml Skin Exam: normal color, warm, dry Lymphatic Exam: No adenopathy SpO2 Interpretation: normal SpO2: 100 O2 Delivery: Room Air - Course Nursing assessment & vital signs reviewed: Yes Ordered Tests: Active Orders 24 hr Category Date Time Status IV Insertion STAT Care 08/25/23 11:46 Active AMYLASE Stat Lab 08/25/23 11:46 Completed BLOOD CULTURE Stat Lab 08/25/23 12:16 Received CBC W DIFF Stat Lab 08/25/23 11:35 Completed CMP Stat Lab 08/25/23 11:46 Completed ETHYL ALCOHOL Stat Lab 08/25/23 11:35 Completed LIPASE Stat Lab 08/25/23 11:46 Completed Lactic Acid Stat Lab 08/25/23 11:35 Completed MONO SCREEN Stat Lab 08/25/23 11:35 Completed UA W/RFX UR CULTURE Stat Lab 08/25/23 13:29 Completed Urine Triage Profile Stat Lab 08/25/23 13:29 Received Medication Summary Generic Name Dose Route Start Last Admin Trade Name Freq PRN Reason Stop Dose Admin Sodium Chloride 500 mls @ 500 mls/hr 08/25/23 14:01 Sodium Chloride 0.9% 500 Ml IV 08/25/23 15:00 .Q1H ONE Discontinued Medications Generic Name Dose Route Start Last Admin Trade Name Freq PRN Reason Stop Dose Admin Sodium Chloride 1,000 mls @ 999 mls/hr 08/25/23 11:46 08/25/23 13:01 Sodium Chloride 0.9% 1000 Ml IV 08/25/23 12:46 Infused .Q1H1M STA Infusion Sodium Chloride Confirm 08/25/23 11:52 Sodium Chloride 0.9% 1000 Ml Administered 08/25/23 11:53 Dose 1,000 mls @ ud .ROUTE .STK-MED ONE Ondansetron HCl 4 mg 08/25/23 11:46 08/25/23 11:56 Ondansetron Hcl 4 Mg/2 Ml Vial IV 08/25/23 11:47 4 mg STAT ONE Administration Ondansetron HCl Confirm 08/25/23 11:52 Ondansetron Hcl 4 Mg/2 Ml Vial Administered 08/25/23 11:53 Dose 4 mg .ROUTE .STK-MED ONE Pantoprazole Sodium 40 mg 08/25/23 11:46 08/25/23 11:58 Pantoprazole 40 Mg Vial IV 08/25/23 11:47 40 mg STAT ONE Administration Pantoprazole Sodium Confirm 08/25/23 11:52 Pantoprazole 40 Mg Vial Administered 08/25/23 11:53 Dose 40 mg IV .STK-MED ONE Lab/Rad Data: Laboratory Result Diagrams 08/25/23 11:35 08/25/23 11:46 Laboratory Results 08/25/23 08/25/23 08/25/23 Range/Units 13:29 12:16 11:46 WBC (4.0-10.5) x10^3/uL RBC (4.1-5.6) x10^6/uL Hgb (12.5-18.0) g/dL Hct (42-50) % MCV (78-100) fL MCH (26-32) pg MCHC (32-36) g/dL RDW (11.5-14.0) % Plt Count (150-450) x10^3/uL MPV (7.5-11.0) fL Gran % (36.0-66.0) % Immature Gran % (Auto) (0.00-0.4) % Nucleat RBC Rel Count (0.00-0.1) % Eos # (Auto) (0-0.5) x10^3/uL Immature Gran # (Auto) (0.00-0.03) x10^3u/L Absolute Lymphs (auto) (1.0-4.6) x10^3/uL Absolute Monos (auto) (0.0-1.3) x10^3/uL Absolute Nucleated RBC (0.00-0.01) x10^3u/L Lymphocytes % (24.0-44.0) % Monocytes % (0.0-12.0) % Eosinophils % (0.00-5.0) % Basophils % (0.0-0.4) % Absolute Granulocytes (1.4-6.9) x10^3/uL Basophils # (0-0.4) x10^3/uL Sodium 134 L (137-145) mmol/L Potassium 4.6 (3.5-5.1) mmol/L Chloride 99 (98-107) mmol/L Carbon Dioxide 25 (22-30) mmol/L Anion Gap 13.9 (5-15) MEQ/L BUN 8 L (9-20) mg/dL Creatinine 0.68 (0.66-1.25) mg/dL Estimated GFR 117.6 ML/MIN Glucose 192 H (74-106) mg/dL Lactic Acid (0.4-2.0) Calcium 9.1 (8.4-10.2) mg/dL Total Bilirubin 0.80 (0.2-1.3) mg/dL AST 47 (17-59) U/L ALT 14 (0-50) U/L Alkaline Phosphatase 50 (38-126) U/L Serum Total Protein 8.4 H (6.3-8.2) g/dL Albumin 4.9 (3.5-5.0) g/dL Amylase 103 (30-110) U/L Lipase 152 (23-300) U/L Urine Color Yellow (Yellow) Urine Appearance Clear (Clear) Urine pH 7.5 (4.6-8.0) Ur Specific Buckner 1.010 (1.005-1.030) Urine Protein Negative (Negative) Urine Glucose (UA) Negative (Negative) mg/dL Urine Ketones Negative (Negative) Urine Blood Negative (Negative) Urine Nitrite Negative (Negative) Urine Bilirubin Negative (Negative) Urine Urobilinogen 1.0 A (0.2) mg/dL Ur Leukocyte Esterase Negative (Negative) U Hyaline Cast (Auto) NONE SEEN (0-2) /LPF Urine Microscopic RBC 0-2 (0-5) /HPF Urine Microscopic WBC 0-2 (0-5) /HPF Ur Epithelial Cells None Seen (None Seen) /HPF Urine Bacteria None Seen (None Seen) /HPF Urine Culture Reflexed NO (NO) Ethyl Alcohol (0-10) mg/dL Monoscreen (NEGATIVE) Influenza Type A Ag NEGATIVE (NEGATIVE) Influenza Type B Ag NEGATIVE (NEGATIVE) RSV (PCR) NEGATIVE (NEGATIVE) SARS-CoV-2 (PCR) NEGATIVE (NEGATIVE) Slides for Path Review 08/25/23 08/25/23 08/25/23 Range/Units 11:35 11:35 11:35 WBC (4.0-10.5) x10^3/uL RBC (4.1-5.6) x10^6/uL Hgb (12.5-18.0) g/dL Hct (42-50) % MCV (78-100) fL MCH (26-32) pg MCHC (32-36) g/dL RDW (11.5-14.0) % Plt Count (150-450) x10^3/uL MPV (7.5-11.0) fL Gran % (36.0-66.0) % Immature Gran % (Auto) (0.00-0.4) % Nucleat RBC Rel Count (0.00-0.1) % Eos # (Auto) (0-0.5) x10^3/uL Immature Gran # (Auto) (0.00-0.03) x10^3u/L Absolute Lymphs (auto) (1.0-4.6) x10^3/uL Absolute Monos (auto) (0.0-1.3) x10^3/uL Absolute Nucleated RBC (0.00-0.01) x10^3u/L Lymphocytes % (24.0-44.0) % Monocytes % (0.0-12.0) % Eosinophils % (0.00-5.0) % Basophils % (0.0-0.4) % Absolute Granulocytes (1.4-6.9) x10^3/uL Basophils # (0-0.4) x10^3/uL Sodium (137-145) mmol/L Potassium (3.5-5.1) mmol/L Chloride (98-107) mmol/L Carbon Dioxide (22-30) mmol/L Anion Gap (5-15) MEQ/L BUN (9-20) mg/dL Creatinine (0.66-1.25) mg/dL Estimated GFR ML/MIN Glucose (74-106) mg/dL Lactic Acid 1.7 (0.4-2.0) Calcium (8.4-10.2) mg/dL Total Bilirubin (0.2-1.3) mg/dL AST (17-59) U/L ALT (0-50) U/L Alkaline Phosphatase (38-126) U/L Serum Total Protein (6.3-8.2) g/dL Albumin (3.5-5.0) g/dL Amylase (30-110) U/L Lipase (23-300) U/L Urine Color (Yellow) Urine Appearance (Clear) Urine pH (4.6-8.0) Ur Specific Buckner (1.005-1.030) Urine Protein (Negative) Urine Glucose (UA) (Negative) mg/dL Urine Ketones (Negative) Urine Blood (Negative) Urine Nitrite (Negative) Urine Bilirubin (Negative) Urine Urobilinogen (0.2) mg/dL Ur Leukocyte Esterase (Negative) U Hyaline Cast (Auto) (0-2) /LPF Urine Microscopic RBC (0-5) /HPF Urine Microscopic WBC (0-5) /HPF Ur Epithelial Cells (None Seen) /HPF Urine Bacteria (None Seen) /HPF Urine Culture Reflexed (NO) Ethyl Alcohol < 10 (0-10) mg/dL Monoscreen POSITIVE (NEGATIVE) Influenza Type A Ag (NEGATIVE) Influenza Type B Ag (NEGATIVE) RSV (PCR) (NEGATIVE) SARS-CoV-2 (PCR) (NEGATIVE) Slides for Path Review 08/25/23 Range/Units 11:35 WBC 5.2 (4.0-10.5) x10^3/uL RBC 5.52 (4.1-5.6) x10^6/uL Hgb 11.0 L (12.5-18.0) g/dL Hct 39.3 L (42-50) % MCV 71.2 L (78-100) fL MCH 19.9 L (26-32) pg MCHC 28.0 L (32-36) g/dL RDW 16.9 H (11.5-14.0) % Plt Count 399 (150-450) x10^3/uL MPV 9.1 (7.5-11.0) fL Gran % 71.4 H (36.0-66.0) % Immature Gran % (Auto) 0.4 (0.00-0.4) % Nucleat RBC Rel Count 0.0 (0.00-0.1) % Eos # (Auto) 0.14 (0-0.5) x10^3/uL Immature Gran # (Auto) 0.02 (0.00-0.03) x10^3u/L Absolute Lymphs (auto) 0.70 L (1.0-4.6) x10^3/uL Absolute Monos (auto) 0.58 (0.0-1.3) x10^3/uL Absolute Nucleated RBC 0.00 (0.00-0.01) x10^3u/L Lymphocytes % 13.5 L (24.0-44.0) % Monocytes % 11.2 (0.0-12.0) % Eosinophils % 2.7 (0.00-5.0) % Basophils % 0.8 (0.0-0.4) % Absolute Granulocytes 3.69 (1.4-6.9) x10^3/uL Basophils # 0.04 (0-0.4) x10^3/uL Sodium (137-145) mmol/L Potassium (3.5-5.1) mmol/L Chloride (98-107) mmol/L Carbon Dioxide (22-30) mmol/L Anion Gap (5-15) MEQ/L BUN (9-20) mg/dL Creatinine (0.66-1.25) mg/dL Estimated GFR ML/MIN Glucose (74-106) mg/dL Lactic Acid (0.4-2.0) Calcium (8.4-10.2) mg/dL Total Bilirubin (0.2-1.3) mg/dL AST (17-59) U/L ALT (0-50) U/L Alkaline Phosphatase (38-126) U/L Serum Total Protein (6.3-8.2) g/dL Albumin (3.5-5.0) g/dL Amylase (30-110) U/L Lipase (23-300) U/L Urine Color (Yellow) Urine Appearance (Clear) Urine pH (4.6-8.0) Ur Specific Buckner (1.005-1.030) Urine Protein (Negative) Urine Glucose (UA) (Negative) mg/dL Urine Ketones (Negative) Urine Blood (Negative) Urine Nitrite (Negative) Urine Bilirubin (Negative) Urine Urobilinogen (0.2) mg/dL Ur Leukocyte Esterase (Negative) U Hyaline Cast (Auto) (0-2) /LPF Urine Microscopic RBC (0-5) /HPF Urine Microscopic WBC (0-5) /HPF Ur Epithelial Cells (None Seen) /HPF Urine Bacteria (None Seen) /HPF Urine Culture Reflexed (NO) Ethyl Alcohol (0-10) mg/dL Monoscreen (NEGATIVE) Influenza Type A Ag (NEGATIVE) Influenza Type B Ag (NEGATIVE) RSV (PCR) (NEGATIVE) SARS-CoV-2 (PCR) (NEGATIVE) Slides for Path Review YES - Progress Progress: improved, re-examined Progress Note: 08/25/23 14:06 Patient's medical issue is 1 of moderate complexity. Level complex in the workup performed is based on review of the patient's past medical history, review of the patient's medication list, review of patient drug allergy list, history of present illness and physical findings on examination. The workup in this patient includes viral swabs, monotest, urinalysis, CBC, CMP, amylase, lipase, IV placement with infusion of 1 L normal saline, Protonix and Zofran medication. I interpreted the results of the workup tests. Patient is positive for mononucleosis. The remainder of the workup results show no acute, emergent medical issue. Counseled pt/family regarding: lab results, diagnosis, need for follow-up Medical Desision Making - Independent Historian Additional History obtained from: Spouse - Diagnostic Testing Diagnostic test were ordered, analyzed, and reviewed by me: Yes - Risk of complications The pt has a mod risk of morbidity or mortality based on: Need for prescription drug management - Departure Departure Disposition: Home Clinical Impression: Mononucleosis Condition: Stable Critical Care Time: No Referrals: HCAN KIRK NP [Primary Care Provider] - Follow up/PCP as directed Additional Instructions: Drink plenty of clear liquids before advancing diet. Avoid fatty greasy spicy foods. Call your primary care provider later today, 08/25/2023, to make arrangements for further evaluation and management in the next 3 to 5 days Prescriptions: Ondansetron ODT 4 MG [Zofran Odt 4 mg] 4 mg PO Q6H PRN PRN #10 tablet PRN Reason: Vomiting
[2023-08-25] MEDS ORDERED: Sodium Chloride 0.9% 1000 ML 1,000 ML ONE (11:52)
[2023-08-25] MEDS ORDERED: Zofran 4 MG/2 ML VIAL ONE (11:52)
[2023-08-25 12:00] LABS: Absolute Neutrophil Ct (ANC) 3.69 x10^3/uL (1.4-6.9); BASOPHIL % 0.8 % (0.0-0.4); Basophil (Absolute #) 0.04 x10^3/uL (0-0.4); Eosinophil % 2.7 % (0.00-5.0); Eosinophil (Absolute #) 0.14 x10^3/uL (0-0.5); Hematocrit 39.3 % (42-50); IMMATURE GRAN # 0.02 x10^3u/L (0.00-0.03); IMMATURE GRAN % 0.4 % (0.00-0.4); Lymphocytes % 13.5 % (24.0-44.0); Mean Cell Volume 71.2 fL (78-100); Mean Corpuscular Hemoglobin 19.9 pg (26-32); Mean Platelet Volume 9.1 fL (7.5-11.0); Monocyte (Absolute #) 0.58 x10^3/uL (0.0-1.3); Monocytes % 11.2 % (0.0-12.0); Neutrophil % 71.4 % (36.0-66.0); Platelet Count 399 x10^3/uL (150-450); Red Blood Count 5.52 x10^6/uL (4.1-5.6); Red Cell Distribution Width 16.9 % (11.5-14.0); White Blood Count 5.2 x10^3/uL (4.0-10.5)
[2023-08-25 12:15] LABS: ALBUMIN 4.9 g/dL (3.5-5.0); ANION GAP 13.9 MEQ/L (5-15); BILIRUBIN,TOTAL 0.8 mg/dL (0.2-1.3); Calcium 9.1 mg/dL (8.4-10.2); Creatinine 1 0.68 mg/dL (0.66-1.25); EST GLOMERULAR FILTRATION RATE 117.6 ML/MIN; Total Protein 8.4 g/dL (6.3-8.2)
[2023-08-25 12:21] LABS: Potassium 4.6 mmol/L (3.5-5.1)
[2023-08-25 12:31] LABS: Slide Review 1 YES
[2023-08-25 12:59] LABS: INFLUENZA A NEGATIVE (NEGATIVE); INFLUENZA B NEGATIVE (NEGATIVE); RESPIRATORY SYNCTIAL VIRUS NEGATIVE (NEGATIVE); SARS-CoV-2 Xpert Express NEGATIVE (NEGATIVE)
[2023-08-25 13:53] LABS: Appearance Clear (Clear); Bacteria None Seen /HPF (None Seen); Bilirubin Negative (Negative); Blood Negative (Negative); Epithelial Cells None Seen /HPF (None Seen); Glucose, Urine Negative (Negative); Hyaline Casts NONE SEEN /LPF (0-2); Ketones Negative (Negative); Leukocyte Esterase Negative (Negative); Nitrite Negative (Negative); Ph 7.5 (4.6-8.0); Protein,Urine Dip Negative (Negative); RBC 0-2 /HPF (0-5); WBC 0-2 /HPF (0-5)
[2023-08-25 13:56] LABS: ADD URINE CULTURE? NO (NO)
[2023-08-25] MEDS ORDERED: Sodium Chloride 0.9% 500 ML 500 ML IV ONE ×2 (14:01→14:15)
[2023-08-25 14:14] LABS: Amphetamine,Urine NEGATIVE (NEGATIVE); Barbiturate,Urine NEGATIVE (NEGATIVE); Benzodiazepine,Urine NEGATIVE (NEGATIVE); Cocaine,Urine NEGATIVE (NEGATIVE); Methadone,Urine NEGATIVE (NEGATIVE); Opiate,Urine NEGATIVE (NEGATIVE); PCP,Urine NEGATIVE (NEGATIVE); THC,Urine NEGATIVE (NEGATIVE)
[2023-08-25 14:35] VITALS: O2SAT 99
[2023-08-25 15:17] VITALS: BP 143/89; PULSE 74; RESP 18
== END 2023-08-25 15:32 | disposition home or self-care (01) ==
LOC: ED 11:17
DX: B27.90 Infectious mononucleosis, unspecified without complication (principal); R11.2 Nausea with vomiting, unspecified; R19.7 Diarrhea, unspecified; R53.83 Other fatigue; R53.1 Weakness; R07.9 Chest pain, unspecified; Z28.310 Unvaccinated for COVID-19
CPT/HCPCS: 0241U; 36000; 36415; 80053; 80307; 81001; 82077; 82150; 83605; 83690; 85025; 86308; 87040; 96374; 96375; 99284; J2405

== ENCOUNTER 2024-08-24 15:23 | Emergency (ER) | payer OTHER ==
[2024-08-24 15:52] VITALS: TEMP 101.2
[2024-08-24] MEDS ORDERED: Sodium Chloride 0.9% 1000 ML 1,000 ML ONE (16:03)
[2024-08-24] MEDS ORDERED: Zofran 4 MG/2 ML VIAL ONE (16:03)
[2024-08-24] MEDS: Sodium Chloride 0.9% 1000 ML 1,000 ML IV STA (16:04)
[2024-08-24] MEDS: Zofran 4 MG/2 ML VIAL IV ONE (16:04)
[2024-08-24 16:06] LABS: Absolute Neutrophil Ct (ANC) 10.06 x10^3/uL (1.78-5.38); BASOPHIL % 0.3 % (0.2-1.2); Basophil (Absolute #) 0.03 x10^3/uL (0.01-0.08); Eosinophil % 0.1 % (0.8-7.0); Eosinophil (Absolute #) 0.01 x10^3/uL (0.04-0.54); Hemoglobin 9.9 g/dL (13.7-17.5); IMMATURE GRAN # 0.07 x10^3u/L (0.001-0.031); IMMATURE GRAN % 0.6 % (0.001-0.429); Lymphocyte (Absolute #) 0.19 x10^3/uL (1.32-3.57); Lymphocytes % 1.8 % (21.8-53.1); Mean Cell Volume 69.9 fL (79.0-92.2); Mean Corpuscular Hemoglobin 19.8 pg (25.7-32.2); Mean Corpuscular Hgb Concent. 28.3 g/dL (32.3-36.5); Mean Platelet Volume 9.4 fL (9.4-12.4); Monocyte (Absolute #) 0.42 x10^3/uL (0.30-0.82); Monocytes % 3.9 % (5.3-12.2); Neutrophil % 93.3 % (34.0-67.9); Platelet Count 255 x10^3/uL (163-337); Red Blood Count 5.01 x10^6/uL (4.63-6.08); White Blood Count 10.8 x10^3/uL (4.23-9.07)
[2024-08-24 16:13] LABS: ALBUMIN 4.3 g/dL (3.5-5.0); ANION GAP 16.4 MEQ/L (5-15); BILIRUBIN,TOTAL 1.1 mg/dL (0.2-1.3); Calcium 8.3 mg/dL (8.4-10.2); Creatinine 1 0.83 mg/dL (0.66-1.25); Potassium 3.4 mmol/L (3.5-5.1); Total Protein 7.5 g/dL (6.3-8.2)
--- NOTE | 2024-08-24 16:13 | ERPHSYRPT ---
- History of Present Illness Time Seen by Provider: 08/24/24 16:11 Source: patient Exam Limitations: no limitations Patient Subjective Stated Complaint: pt here for n/v/d today with fever Triage Nursing Assessment: pt alert, walked in, resp easy, skin w/d/p. chest clear, no cough, abd soft with bs x4 , Physician History: Patient is 44-year-old male came to the emergency room with complaining of nausea vomiting diarrhea sore throat since 1:00 in the morning. He has a sick contact at home which was his , she has a symptoms to 3 days ago. Patient is feeling very weak and lethargic. Patient is also complaining of fever with chills. Timing/Duration: today Associated Symptoms: nausea, vomiting, chills, fever, loss of appetite, weakness Allergies/Adverse Reactions: No Known Drug Allergies Allergy (Verified 08/24/24 15:42) Hx Tetanus, Diphtheria Vaccination/Date Given: Yes Hx Influenza Vaccination/Date Given: No Hx Pneumococcal Vaccination/Date Given: No Immunizations Up to Date: Yes Travel Risk - International Travel Have you traveled outside of the country in past 3 weeks: No - Emerging Infectious Disease Are you exhibiting symptoms associated with any current EIDs: Yes Symptoms: Diarrhea, Fever, Vomitting - Review of Systems Constitutional: No Fever, No Chills Eyes: No Symptoms Ears, Nose, & Throat: Throat Pain Respiratory: Cough, No Dyspnea Cardiac: No Chest Pain, No Edema, No Syncope Abdominal/Gastrointestinal: Abdominal Pain, Nausea, Vomiting, Diarrhea Genitourinary Symptoms: No Dysuria Musculoskeletal: No Back Pain, No Neck Pain Skin: No Rash Neurological: No Dizziness, No Focal Weakness, No Sensory Changes Psychological: No Symptoms Endocrine: No Symptoms All Other Systems: Reviewed and Negative - Past Medical History Pertinent Past Medical History: Yes Neurological History: No Pertinent History ENT History: No Pertinent History Cardiac History: Arrhythmia Respiratory History: No Pertinent History Endocrine Medical History: No Pertinent History Musculoskeletal History: Fractures GI Medical History: Gallbladder Disease, Pancreatitis, Ulcer History: Other Psycho-Social History: Depression Male Reproductive Disorders: Prostate Problems Other Medical History: FREQUENT KIDNEY STONES - Past Surgical History Past Surgical History: Yes Neuro Surgical History: No Pertinent History Cardiac: No Pertinent History Respiratory: No Pertinent History Gastrointestinal: Cholecystectomy, Other Genitourinary: No Pertinent History Musculoskeletal: No Pertinent History Male Surgical History: No Pertinent History Other Surgical History: gastric bypass, dilation of stomach, L knee surgery Significant Family History: no pertinent family hx - Social History Smoking Status: Never smoker Exposure to second hand smoke: No Drug Use: none Patient Lives Alone: No - Social Determinants of Health Will the patient participate in the screening: Declined to provide - Nursing Vital Signs Nursing Vital Signs: Initial Vital Signs Blood Pressure 151/83 08/24/24 15:43 O2 Sat by Pulse Oximetry 95 08/24/24 15:43 Pain Scale Pain Intensity 4 - Physical Exam General Appearance: no apparent distress, alert Eye Exam: PERRL/EOMI, eyes nml inspection Ears, Nose, Throat Exam: normal ENT inspection, TMs normal, pharynx normal, moist mucous membranes Neck Exam: normal inspection, non-tender, supple, full range of motion Respiratory Exam: normal breath sounds, lungs clear, No respiratory distress Cardiovascular Exam: regular rate/rhythm, normal heart sounds, normal peripheral pulses Gastrointestinal/Abdomen Exam: soft, normal bowel sounds, No tenderness, No mass Back Exam: normal inspection, normal range of motion, No CVA tenderness, No vertebral tenderness Extremity Exam: normal inspection, normal range of motion, pelvis stable Neurologic Exam: alert, oriented x 3, cooperative, normal mood/affect, nml cerebellar function, nml station & gait, sensation nml, No motor deficits Skin Exam: normal color, warm, dry, No rash Lymphatic Exam: No adenopathy SpO2: 96 - Course Nursing assessment & vital signs reviewed: Yes Ordered Tests: Active Orders 24 hr Category Date Time Status AMYLASE Stat Lab 08/24/24 16:05 Completed CBC W DIFF Stat Lab 08/24/24 16:05 Completed CMP Stat Lab 08/24/24 16:05 Completed LIPASE Stat Lab 08/24/24 16:05 Completed Medication Summary Generic Name Dose Route Start Last Admin Trade Name Freq PRN Reason Stop Dose Admin Lactated Ringer's 1,000 mls @ 999 mls/hr 08/24/24 17:12 Lactated Ringers IV 08/24/24 18:12 .Q1H1M ONE Discontinued Medications Generic Name Dose Route Start Last Admin Trade Name Freq PRN Reason Stop Dose Admin Sodium Chloride 1,000 mls @ 999 mls/hr 08/24/24 16:01 08/24/24 16:04 Sodium Chloride 0.9% 1000 Ml IV 08/24/24 17:01 999 mls/hr .Q1H1M STA Administration Sodium Chloride Confirm 08/24/24 16:03 Sodium Chloride 0.9% 1000 Ml Administered 08/24/24 16:04 Dose 1,000 mls @ ud .ROUTE .STK-MED ONE Ondansetron HCl 4 mg 08/24/24 16:01 08/24/24 16:04 Ondansetron Hcl 4 Mg/2 Ml Vial IV 08/24/24 16:02 4 mg STAT ONE Administration Ondansetron HCl Confirm 08/24/24 16:03 Ondansetron Hcl 4 Mg/2 Ml Vial Administered 08/24/24 16:04 Dose 4 mg .ROUTE .STK-MED ONE Lab/Rad Data: Laboratory Result Diagrams 08/24/24 16:05 08/24/24 16:05 Laboratory Results 08/24/24 08/24/24 08/24/24 Range/Units 16:18 16:05 16:05 WBC (4.23-9.07) x10^3/uL RBC (4.63-6.08) x10^6/uL Hgb (13.7-17.5) g/dL Hct (40.1-51.0) % MCV (79.0-92.2) fL MCH (25.7-32.2) pg MCHC (32.3-36.5) g/dL RDW (11.6-14.4) % Plt Count (163-337) x10^3/uL MPV (9.4-12.4) fL Gran % (34.0-67.9) % Immature Gran % (Auto) (0.001-0.429) % Nucleat RBC Rel Count (0.00-0.2) % Eos # (Auto) (0.04-0.54) x10^3/uL Immature Gran # (Auto) (0.001-0.031) x10^3u/L Absolute Lymphs (auto) (1.32-3.57) x10^3/uL Absolute Monos (auto) (0.30-0.82) x10^3/uL Absolute Nucleated RBC (0.00-0.012) x10^3u/L Lymphocytes % (21.8-53.1) % Monocytes % (5.3-12.2) % Eosinophils % (0.8-7.0) % Basophils % (0.2-1.2) % Absolute Granulocytes (1.78-5.38) x10^3/uL Basophils # (0.01-0.08) x10^3/uL Sodium 131 L (135-145) mmol/L Potassium 3.4 L (3.5-5.1) mmol/L Chloride 99 (98-107) mmol/L Carbon Dioxide 19 L (22-30) mmol/L Anion Gap 16.4 H (5-15) MEQ/L BUN 11 (9-20) mg/dL Creatinine 0.83 (0.66-1.25) mg/dL Estimated GFR 110.0 ML/MIN Glucose 211 H (74-106) mg/dL Hemoglobin A1c 5.36 (4.5-6.0) % Calcium 8.3 L (8.4-10.2) mg/dL Total Bilirubin 1.10 (0.2-1.3) mg/dL AST 38 (17-59) U/L ALT 19 (0-50) U/L Alkaline Phosphatase 48 (38-126) U/L Serum Total Protein 7.5 (6.3-8.2) g/dL Albumin 4.3 (3.5-5.0) g/dL Amylase 64 (30-110) U/L Lipase 48 (23-300) U/L Influenza Type A Ag NEGATIVE (NEGATIVE) Influenza Type B Ag NEGATIVE (NEGATIVE) RSV (PCR) NEGATIVE (NEGATIVE) SARS-CoV-2 (PCR) NEGATIVE (NEGATIVE) 08/24/24 Range/Units 16:05 WBC 10.8 H (4.23-9.07) x10^3/uL RBC 5.01 (4.63-6.08) x10^6/uL Hgb 9.9 L (13.7-17.5) g/dL Hct 35.0 L (40.1-51.0) % MCV 69.9 L (79.0-92.2) fL MCH 19.8 L (25.7-32.2) pg MCHC 28.3 L (32.3-36.5) g/dL RDW 18.0 H (11.6-14.4) % Plt Count 255 (163-337) x10^3/uL MPV 9.4 (9.4-12.4) fL Gran % 93.3 H (34.0-67.9) % Immature Gran % (Auto) 0.6 H (0.001-0.429) % Nucleat RBC Rel Count 0.0 (0.00-0.2) % Eos # (Auto) 0.01 L (0.04-0.54) x10^3/uL Immature Gran # (Auto) 0.07 H (0.001-0.031) x10^3u/L Absolute Lymphs (auto) 0.19 L (1.32-3.57) x10^3/uL Absolute Monos (auto) 0.42 (0.30-0.82) x10^3/uL Absolute Nucleated RBC 0.00 (0.00-0.012) x10^3u/L Lymphocytes % 1.8 L (21.8-53.1) % Monocytes % 3.9 L (5.3-12.2) % Eosinophils % 0.1 L (0.8-7.0) % Basophils % 0.3 (0.2-1.2) % Absolute Granulocytes 10.06 H (1.78-5.38) x10^3/uL Basophils # 0.03 (0.01-0.08) x10^3/uL Sodium (135-145) mmol/L Potassium (3.5-5.1) mmol/L Chloride (98-107) mmol/L Carbon Dioxide (22-30) mmol/L Anion Gap (5-15) MEQ/L BUN (9-20) mg/dL Creatinine (0.66-1.25) mg/dL Estimated GFR ML/MIN Glucose (74-106) mg/dL Hemoglobin A1c (4.5-6.0) % Calcium (8.4-10.2) mg/dL Total Bilirubin (0.2-1.3) mg/dL AST (17-59) U/L ALT (0-50) U/L Alkaline Phosphatase (38-126) U/L Serum Total Protein (6.3-8.2) g/dL Albumin (3.5-5.0) g/dL Amylase (30-110) U/L Lipase (23-300) U/L Influenza Type A Ag (NEGATIVE) Influenza Type B Ag (NEGATIVE) RSV (PCR) (NEGATIVE) SARS-CoV-2 (PCR) (NEGATIVE) - Progress Progress: improved Counseled pt/family regarding: lab results, diagnosis, need for follow-up Medical Desision Making - Independent Historian Additional History obtained from: Spouse - Diagnostic Testing Diagnostic test were ordered, analyzed, and reviewed by me: Yes - Risk of complications Minimal Risk: Minimal risk of morbidity - Departure Departure Disposition: Home Clinical Impression: Dehydration with hyponatremia, Viral gastroenteritis, Hyperglycemia Anemia Qualifiers: Anemia type: iron deficiency Iron deficiency anemia type: other iron deficiency Qualified Code(s): D50.8 - Other iron deficiency anemias Condition: Stable Critical Care Time: No Referrals: CHAN KIRK NP [Primary Care Provider] - Follow Up with PCP/3 days Instructions: Viral gastroenteritis in adults, Dehydration in adults - ED discharge instructions Prescriptions: Ondansetron ODT 4 MG [Zofran Odt 4 mg] 4 mg PO Q6H PRN PRN #10 tablet PRN Reason: Nausea/Vomiting
[2024-08-24 16:57] LABS: INFLUENZA A NEGATIVE (NEGATIVE); INFLUENZA B NEGATIVE (NEGATIVE); RESPIRATORY SYNCTIAL VIRUS NEGATIVE (NEGATIVE); SARS-CoV-2 Xpert Express NEGATIVE (NEGATIVE)
[2024-08-24] MEDS ORDERED: Lactated Ringers 1,000 ML IV ONE (17:20)
[2024-08-24] MEDS: Lactated Ringers 1,000 ML IV ONE (17:21)
[2024-08-24 18:07] VITALS: O2SAT 97
[2024-08-24 18:33] VITALS: BP 136/83; PULSE 80; RESP 16
== END 2024-08-24 18:34 | disposition home or self-care (01) ==
LOC: ED 15:23
DX: E87.1 Hypo-osmolality and hyponatremia (principal); E86.0 Dehydration; R11.2 Nausea with vomiting, unspecified; R50.9 Fever, unspecified; K52.9 Noninfective gastroenteritis and colitis, unspecified; R73.9 Hyperglycemia, unspecified
CPT/HCPCS: 0241U; 36415; 80053; 82150; 83036; 83690; 85025; 96374; 99284; 99283; J2405